=== PATIENT | female | born 1965 | race Two or more races ===

== ENCOUNTER → 2018-02-26 | Day surgery (SDC) | payer MEDICARE, MEDICAID ==
[~2018-02-26] MED LIST: LIDOCAINE HCL 1% 20ML VIAL (Pyxis) INJ ONE; SODIUM BICARBONATE 4% (2.4MEQ) 5ML VIAL IV ONE
== END | disposition home or self-care (01) ==
LOC: RADANGIO 10:02
PROVIDERS: ATTEND Podiatrist Foot & Ankle Surgery
DX: M86.9 Osteomyelitis, unspecified (principal); Z79.2 Long term (current) use of antibiotics
CPT/HCPCS: 36569; 76937; 77001; C1725; J3490